=== PATIENT | female | born 1970 | race Caucasian/White ===

== ENCOUNTER 2019-09-09 14:24 | Outpatient (CLI) | payer BC, SELFPAY ==
--- NOTE | ~2019-09-09 | MM_ITS ---
EXAMINATION: MM screening zana BI w eva HISTORY: Screening mammogram TECHNIQUE: Craniocaudal and mediolateral oblique 3-D tomosynthesis images were obtained and synthetic 2-D images were generated. CAD analysis was submitted and interpreted. COMPARISON: No prior mammogram is available for comparison at this institution. BREAST PARENCHYMAL COMPOSITION: The breasts are heterogeneously dense, which may obscure small masses . FINDINGS: There is no evidence of suspicious mass, calcification, or architectural distortion to sugg est malignancy in either breast. There has been no suspicious interval change. IMPRESSION: 1. No mammographic evidence of malignancy. 2. Recommend routine screening mammography in one year. BI-RADS Category 1: Negative Reviewed, dictated and finalized at location A.
== END 2019-09-09 14:25 | disposition home or self-care (01) ==
LOC: ANHIMG 14:27
PROVIDERS: PCP Pediatrics; Visit Provider Obstetrics & Gynecology
DX: Z12.31 Encounter for screening mammogram for malignant neoplasm of breast (principal)
CPT/HCPCS: 77063; 77067

== ENCOUNTER 2021-02-01 09:29 | Outpatient (CLI) | payer BC, SELFPAY ==
--- NOTE | ~2021-02-01 | MM_ITS ---
EXAMINATION: MM screening zana BI w eva HISTORY: Screening TECHNIQUE: Craniocaudal and mediolateral oblique 3-D tomosynthesis images were obtained and synthetic 2-D images were generated. CAD analysis was submitted and interpreted. COMPARISON: Comparison to multiple prior studies sequentially, with oldest reviewed study dated 10/27. BREAST PARENCHYMAL COMPOSITION: There are scattered areas of fibroglandular density. FINDINGS: There is no evidence of suspicious mass, calcification, or architectural distortion to sugg est malignancy in either breast. There has been no suspicious interval change. IMPRESSION: 1. No mammographic evidence of malignancy. 2. Recommend routine screening mammography in one year. BI-RADS Category 1: Negative Reviewed, dictated and finalized at location A.
== END 2021-02-01 09:30 | disposition home or self-care (01) ==
LOC: ANHIMG 09:31
PROVIDERS: PCP Pediatrics; Visit Provider Obstetrics & Gynecology
DX: Z12.31 Encounter for screening mammogram for malignant neoplasm of breast (principal)
CPT/HCPCS: 77063; 77067

== ENCOUNTER → 2021-05-16 02:20 | Outpatient (CLI) | payer BC, SELFPAY ==
[2021-05-16 16:44] LABS: SARS-CoV-2 RNA PCR Negative
== END ==
PROVIDERS: PCP Pediatrics; Visit Provider Orthopaedic Surgery
DX: Z01.812 Encounter for preprocedural laboratory examination (principal); Z20.822 Contact with and (suspected) exposure to COVID-19
CPT/HCPCS: C9803; U0003; U0005

== ENCOUNTER 2021-05-19 00:26 | Day surgery (SDC) | payer BC, SELFPAY ==
[2021-05-10 14:10] VITALS: BMI 26.6
--- NOTE | 2021-05-10 14:26 | PC.NURSE ---
Report to the Outpatient Waiting Room, entrance under the green pavilion located off [facility], at time 0600 on date 05/19/21. OR Time: 0730. - You will be asked a series of questions to screen for COVID 19 for your protection. - A mask is required within the hospital. - No visitors are allowed at this time. Preoperative COVID Testing Requirements: COVID TEST 05/16 AT 0735 No COVID Test needed if: (proof is required; if not received patient will have Rapid Test prior to entry) - Patient has received COVID Vaccine at least 14 days prior to procedure date or - Patient has positive COVID test result within last 90 days of surgery date. COVID Test needed if above criteria is not met If not COVID vaccinated a COVID test must be conducted within 72 hours of surgery and patient is asked to isolate self from time of testing until procedure. You will go to the [employer] [facility] for your COVID testing. The [employer] [facility] site is located at the corner of [address] [facility]. You will only be called if COVID results are positive and your surgeon may reschedule your elective surgery date. Patients may have clear liquids (water, carbonated beverages, clear teas, apple juice) until 3 hours prior to surgery with a maximum of 20 ounces. - No food from midnight until time of surgery Take the following medications with a SIP of water the morning of surgery: TYLENOL (IF NEEDED) Medications to discontinue per physician: IBUPROFEN Date to take last dose: PER DR. GAFFNEY Please no make-up, nail german, hairspray, perfume, deodorant, or body powder the day of surgery. No jewelry (including any body piercings) or valuables the day of surgery, leave them at home. Please take a shower or bath the night before, or the morning of, surgery with an antibacterial soap. Wear comfortable, loose fitting clothing. - Jewelry must be removed prior to entering the operating room. Rings and piercings that are not removed may be cut off. - The hospital will not accept responsibility for valuables. - Please leave all valuables, including medications, at home the day of surgery. If you are going home after surgery, a licensed transport truck driver must drive you home. - NO public transportation without another adult. - We recommend that an adult stay with you for 24 hours following discharge. - We also recommend that you do not drive, make important decision, drink alcoholic beverages, or take any drugs that were not prescribed by your health care provider for at least 24 hours after your discharge time. Follow any additional instructions given to you from your surgeon. Telephone instructions given to FRIEDA CHOI and asked if any additional questions and then verbalized understanding. Patient advised to call surgeon office or pre surgery nurse liaison [phone] if any additional questions.
--- NOTE | 2021-05-18 14:40 | PM.IMHP ---
H&P: HPI History of Present Illness Date/Time: 05/18/21 14:40 FRIEDA IS HERE FOR RIGHT SHOULDER PAIN. SHE IS SCHEDULED FOR RIGHT ROTATOR CUFF REPAIR AND DCE. WE DISCUSSED RISKS AND COMPLICATIONS OF SURGERY. SHE IS WANTING TO PROCEED. Chief Complaint: RIGHT SHOULDER PAIN Review of Systems Review of Systems: All systems reviewed & are unremarkable except as noted in HPI and below Eyes: Eyes: Reports no additional eye complaints Respiratory: Respiratory: Reports no additional respiratory complaints Musculoskeletal: Musculoskeletal: Reports no additional musculoskeletal complaints Neurologic: Reports system reviewed and no additional complaints, except as documented [facility] Past Medical History Medical History History of adverse reaction to anesthesia Vision changes Wears glasses Weight gain Surgical History Surgical History History of dilatation and curettage x2 History of laparoscopy Hx of appendectomy Hx of tonsillectomy Family History Family History Other Brain cancer Breast cancer Cerebrovascular accident Diabetes mellitus Heart disease High cholesterol Hypertension Neuropathy Social History Social History Smoking status: Never smoker Alcohol intake: current Drinks per week: 4 Alcohol use details: ~4/week Substance use: never Substance use type: does not use 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 ) normal to inspection, tenderness, axillary nerve sensory function normal and abnormal ROM (rom RR 0 TO 160 DEG ABD 0 TO 160 DEG), elbow/forearm normal to inspection and Extremity exam: right hand normal to inspection and neuromotor exam normal; no cyanosis, no edema and joint enlargement noted Assessment and Plan Additional Plan FRIEDA IS HERE EVALUATION OF HER RIGHT SHOULDER PAIN. SHE HAS NO HISTORY OF TRAUMA. HER PAIN STARTED 2 YEARS AGO. SHE HAS NIGHT PAIN AND CATCHING. HER PAIN IS SEVERE AT TIMES. SHE HAS HAD PT WITH NO IMPROVEMENT. HISTORY, EXAM AND RADIOGRAPHS REVIEWED WITH THE PATIENT. REFERRING PHYSICIAN RECORDS AND IMAGES REVIEWED. CONDITION, NATURE, ETIOLOGY AND COURSE OF NATURAL HISTORY REVIEWED. CONSERVATIVE AND OPERATIVE TREATMENT OPTIONS REVIEWED WELL THE RISKS AND BENEFITS OF EACH. MRI SHOWS FULL THICKNESS ROTATOR CUFF TEAR AND AC JOINT DJD. RECOMMEND RIGHT ROTATOR CUFF REPAIR WITH DISTAL CLAVICLE EXCISION. DISCUSSED NONOPERATIVE AND OPERATIVE TREATMENT OPTIONS WITH THE PATIENT. THE PATIENT'S QUESTIONS WERE ANSWERED. THE PATIENT DESIRES OPERATIVE TREATMENT. DISCUSSED ____RIGHT ROTATOR CUFF REPAIR WITH . RISKS OF SURGERY INCLUDING BUT NOT LIMITED TO NEUROVASCULAR DAMAGE, WOUND COMPLICATIONS, BLOOD CLOT, PULMONARY EMBOLUS, STROKE, IN, ANESTHETIC RISKS UP TO AND INCLUDING WERE REVIEWED. CONTINUED PAIN AND POSSIBLE DYSFUNCTION WERE EXPLAINED. NO GUARANTEES WERE OFFERED. THE PATIENT UNDERSTANDS AND WISHES TO PROCEED.
--- NOTE | 2021-05-18 14:54 | WPDANESEPPF ---
Anes - Initial Pre Proc Eval Procedure: Operation Date: 05/19/21 07:30 Proposed Procedures p Right Rotator Cuff Repair with Distal Clavicle Excision - Gregory Merida MD Date/Time: 05/18/21 14:54 Surgeon: Gregory Merida MD Pre Op Diagnosis: right rotator cuff tear Patient Data Age: 51 Gender: F Height: 1.68 m Weight: 74.84 kg Allergies Allergy/AdvReac Type Severity Reaction Status Date / Time cephalexin [From Keflex] Allergy Rash Verified 05/19/21 07:22 Home Medications Medication Instructions Recorded Confirmed Type acetaminophen 500 mg tablet 500 mg PO Q6H PRN 04/03/21 05/10/21 History ibuprofen 600 mg tablet 600 mg PO Q6H PRN 04/03/21 05/10/21 History Patient hx anesthesia problems: none Family hx anesthesia problems: none Results Review: All pre-operative results and documents have been reviewed as part of the pre-operative evaluation. [facility] Past Medical History Medical History (Updated 05/18/21 @ 14:55 by Hayden Reyes MD) Anxiety History of adverse reaction to anesthesia Overweight (BMI 25.0-29.9) Vision changes Wears glasses Weight gain Surgical History Surgical History History of dilatation and curettage x2 History of laparoscopy Hx of appendectomy Hx of tonsillectomy Family History Family History Other Brain cancer Breast cancer Cerebrovascular accident Diabetes mellitus Heart disease High cholesterol Hypertension Neuropathy Social History Social History Smoking status: Never smoker Alcohol intake: current Drinks per week: 4 Alcohol use details: ~4/week Substance use: never Substance use type: does not use Living arrangements: with family Additional occupation/education comments: Manager [employer] Gender identity (if verbalized by the patient): Female Spiritual care concerns: No Anes - Eval Final PreProcedure Day of Procedure 05/18/21 14:54 Patient weight: overweight Heart: regular rate and rhythm Lungs: clear to auscultation and normal air movement Airway: Mallampati scale class II Neurological: alert and oriented Last oral intake: >/= 8 hours ASA classification: II Emergent: no Anesthetic plan: proceed Anesthesia type and monitoring: general LMA Results Review: All pre-operative results and documents have been reviewed as part of the pre-operative evaluation. Informed Consent: The patient's anesthetic plan and its attendant risks and benefits were discussed with the patient/family/POA. Questions were solicited and answers provided to the satisfaction of the patient/family/POA.
--- NOTE | 2021-05-18 14:55 | WPDANESPNB ---
Anes - Peripheral Nerve Block Date/Time: 05/18/21 14:55 I have discussed with the patient/family/POA the placement of a peripheral nerve block for post-operative pain management, including associated risks, benefits, complications, and side effects. Alternative methods of post-operative analgesia were detailed. Questions were solicited and answers provided to the satisfaction of the patient/family/POA. Time-Out: A pre-procedural Time-Out was completed immediately before starting the procedure and confirmed: Patient Identification, Site, Procedure, Patient Position and the Availability of Requisite Equipment. Clinical Indications: Acute post-operative pain management requested by the operative surgeon. Nerve Block Insertion Note Anes-nerve block: supraclavicular right Patient position: supine Skin prep: chlorhexidine Needle: 22 gauge, stimulating, insulated echogenic needle. Needle length: 80 mm Technique: ultrasound (in plane) Injectate: bupivacaine 0.5% with epi 5 mcg/ml (20cc) Observations: tolerated well Complications: none Procedure start time:: 725 Procedure end time:: 730
[2021-05-19] VITALS (12 sets, daily range): BP systolic 117–137; BP diastolic 72–90; PULSE 64–89; RESP 12–16; TEMP 36.2–36.4; O2SAT 95–100
[2021-05-19] MEDS: ACETAMINOPHEN 500 MG TABLET 1000 MG PO (07:01)
[2021-05-19] MEDS: CELECOXIB 200 MG CAPSULE PO (07:01)
[2021-05-19] MEDS: KETOROLAC 15 MG/ML VIAL (*BKC) IV PUSH ×2 (07:04→11:15)
[2021-05-19] MEDS: LACTATED RINGERS 1,000 ML 30 ML IV CONT ×2 (07:04→09:27)
--- NOTE | 2021-05-19 07:22 | WPDHPUPDATE1 ---
History and Physical Update Update Date/Time: 05/19/21 07:22 History and Physical has been reviewed, including an updated exam of the patient. There are NO changes in the patient's condition. Risks, benefits, and alternatives have been discussed and questions answered. Patient agrees to proceed with procedure.
[2021-05-19] MEDS: CLINDAMYCIN 900 MG/D5W 50 ML 900 MG/50 ML PIGGYBACK 50 MG IVPB (07:41)
--- NOTE | 2021-05-19 08:52 | W.PM.PROC2 ---
Procedure Note - Detailed Date of Procedure 05/19/21 Pre-op Diagnosis right rotator cuff tear and ac joint djd Post-op Diagnosis same Procedure Performed REPAIR RIGHT ROTATOR CUFF WITH DCE Surgeon Gregory Merida MD Anesthesia general Description of Procedure THE PATIENT WAS TAKEN TO THE OPERATING ROOM AND THEN INTUBATED AND PLACED IN THE BEACH CHAIR POSITION. THE RIGHT UPPER EXTREMITY WAS PREPPED AND DRAPED IN THE NORMAL STERILE FASHION. AN INCISION WAS MADE IN BETWEEN THE LESLY-LATERAL ACROMION AND THE AC JOINT. A DISTAL CLAVICLE EXCISION WAS PREFORMED REMOVING 1 CM OF DISTAL CLAVICLE. THE CAPSULE WAS APPROXIMATED WITH 0 VICRYL. NEXT THE FASCIA WAS IDENTIFIED. A MINI OPEN INCISION WAS MADE THROUGH THE DELTOID MUSCLE EXPOSING THE SUBACROMIAL SPACE. A LIMITED ACROMIOPLASTY WAS PREFORMED. THE ROTATOR CUFF WAS IDENTIFIED. THERE WAS A FULL THICKNESS TEAR. IT MEASURED APPROXIMATELY 2 CM X 2 CM. THE GREATER TUBEROSITY WAS DEBRIDED TO BLEEDING BONE. 3 ARTHREX 5.5 SUTURE ANCHORS WERE PLACED IN TO GOOD BONE AND HAD VERY GOOD BITES. WINIFRED-CARMENCITA TYPE REPAIRS WERE DONE TO THE ROTATOR CUFF AND THERE WAS GOOD APPROXIMATION TO THE GREATER TUBEROSITY. THE REPAIR WAS EXCELLENT. THERE WAS NO IMPINGEMENT ON THE REPAIR FROM THE ACROMION WITH RANGE OF MOTION. THE WOUND WAS IRRIGATED WITH COPIOUS AMOUNTS OF ANTIBIOTIC SOLUTION. THE DELTOID MUSCLE WAS REPAIRED WITH #2 FIBER WIRE AND 0 VICRYL SUTURE. THE SUBCUTANEOUS LAYER WAS APPROXIMATED WITH 2-0 VICRYL. THE SKIN WAS APPROXIMATED WITH 3-0 QUIL AND DERMABOND. STERILE DRESSING WAS APPLIED. PATIENT WAS EXTUBATED. Estimated Blood Loss 20 Complications No immediate complications Condition stable Disposition PACU
[2021-05-19] MEDS: fentaNYL CITRATE INJ (*CRX) 100 MCG/2 ML VIAL 25 MCG IV PUSH ×8 (09:16→09:45)
[2021-05-19] MEDS: ONDANSETRON INJ 4 MG/2 ML VIAL IV PUSH (10:13)
[2021-05-19] MEDS: oxyCODONE HCL (*CRX) 5 MG TAB IR PO (10:24)
== END 2021-05-19 12:14 | disposition home or self-care (01) ==
PROVIDERS: PCP Pediatrics; Visit Provider Orthopaedic Surgery
PROC: (CPT 23420; principal; 2021-05-19 07:30)
DX: M75.121 Complete rotator cuff tear or rupture of right shoulder, not specified as traumatic (principal); M19.011 Primary osteoarthritis, right shoulder; G89.18 Other acute postprocedural pain
CPT/HCPCS: 23412; 23120; 64415; A9270; C1713; J1100; J1885; J2250; J2405; J2704; J3010; J7120

== ENCOUNTER 2021-06-12 11:46 | Outpatient (NON) | payer BC, SELFPAY | END 2021-06-12 11:47 | disposition home or self-care (01) | PROVIDERS: PCP Pediatrics; Visit Provider Orthopaedic Surgery | DX: T81.49XA Infection following a procedure, other surgical site, initial encounter (principal) | CPT/HCPCS: 87070; 87075; 87076; 87205 ==

== ENCOUNTER 2021-06-28 16:36 | Observation (INO) | payer BC, SELFPAY ==
[2021-06-22 13:54] VITALS: BMI 27.6
--- NOTE | 2021-06-22 14:02 | PC.NURSE ---
Report to the Outpatient Waiting Room, entrance under the green pavilion located off [facility], at time 1300 on date 06/27/21. OR Time: 1500. - You and your visitor will be asked a series of questions to screen for COVID 19 for your protection. - A mask is required within the hospital. One visitor will be allowed to accompany the patient into the hospital. Patients visitor will be instructed to remain with patient at all times or leave the building. We will allow the visitor to come back to the postoperative area when patient is ready. Preoperative COVID Testing Requirements: COVID TEST 06/24 AT 0930 No COVID Test needed if: (proof is required; if not received patient will have Rapid Test prior to entry) - Patient has received COVID Vaccine at least 14 days prior to procedure date or - Patient has positive COVID test result within last 90 days of surgery date. COVID Test needed if above criteria is not met If not COVID vaccinated a COVID test must be conducted within 72 hours of surgery and patient is asked to isolate self from time of testing until procedure. You will go to the [employer] [facility] for your COVID testing. The [employer] [facility] is located at the corner of [address] [facility]. You will only be called if COVID results are positive and your surgeon may reschedule your elective surgery date. Patients may have clear liquids (water, carbonated beverages, clear teas, apple juice) until 3 hours prior to surgery with a maximum of 20 ounces. - No food from midnight until time of surgery Take the following medications with a SIP of water the morning of surgery: ANTIBIOTIC, TYLENOL (IF NEEDED) Medications to discontinue per physician: IBUPROFEN Date to take last dose: PER DR. GAFFNEY Please no make-up, nail ukrainian, hairspray, perfume, deodorant, or body powder the day of surgery. No jewelry (including any body piercings) or valuables the day of surgery, leave them at home. Please take a shower or bath the night before, or the morning of, surgery with an antibacterial soap. Wear comfortable, loose fitting clothing. - Jewelry must be removed prior to entering the operating room. Rings and piercings that are not removed may be cut off. - The hospital will not accept responsibility for valuables. - Please leave all valuables, including medications, at home the day of surgery. If you are going home after surgery, a licensed tower truck driver must drive you home. - NO public transportation without another adult. - We recommend that an adult stay with you for 24 hours following discharge. - We also recommend that you do not drive, make important decision, drink alcoholic beverages, or take any drugs that were not prescribed by your health care provider for at least 24 hours after your discharge time. Follow any additional instructions given to you from your surgeon. Telephone instructions given to FRIEDA CHOI and asked if any additional questions and then verbalized understanding. Patient advised to call surgeon office or pre surgery nurse liaison [phone] if any additional questions.
[2021-06-27] VITALS (11 sets, daily range): BP systolic 122–154; BP diastolic 78–98; PULSE 80–110; RESP 10–20; TEMP 36.1–38; O2SAT 93–100
--- NOTE | 2021-06-27 08:14 | WPDANESEPPF ---
Anes - Initial Pre Proc Eval Procedure: Operation Date: 06/27/21 15:00 Proposed Procedures p Incision and Debridement Right Shoulder - Gregory Merida MD Date/Time: 06/27/21 08:14 Surgeon: Gregory Merida MD Pre Op Diagnosis: right shoulder post op infection Patient Data Age: 51 Gender: F Height: 1.68 m Weight: 77.7 kg Allergies Allergy/AdvReac Type Severity Reaction Status Date / Time cephalexin [From Keflex] Allergy Rash Verified 06/27/21 13:01 Home Medications Medication Instructions Recorded Confirmed Type acetaminophen 500 mg tablet 500 mg PO Q6H PRN 04/03/21 06/27/21 History ibuprofen 600 mg tablet 600 mg PO Q6H PRN 04/03/21 06/27/21 History sulfamethoxazole 800 1 tablet PO Q12H #28 tablet 06/12/21 06/27/21 Rx mg-trimethoprim 160 mg tablet Patient hx anesthesia problems: none Family hx anesthesia problems: none Results Review: All pre-operative results and documents have been reviewed as part of the pre-operative evaluation. REPLACED BY [facility] Past Medical History Medical History Anxiety History of adverse reaction to anesthesia Overweight (BMI 25.0-29.9) Vision changes Wears glasses Weight gain Surgical History Surgical History History of dilatation and curettage x2 History of laparoscopy Hx of appendectomy Hx of tonsillectomy Family History Family History Other Brain cancer Breast cancer Cerebrovascular accident Diabetes mellitus Heart disease High cholesterol Hypertension Neuropathy Social History Social History Alcohol intake: current Drinks per week: 4 Substance use: never Substance use type: does not use Living arrangements: with family Additional occupation/education comments: [employer] Gender identity (if verbalized by the patient): Female Spiritual care concerns: No Anes - Eval Final PreProcedure Day of Procedure 06/27/21 08:14 Patient weight: overweight Heart: regular rate and rhythm Lungs: clear to auscultation and normal air movement Airway: Mallampati scale class II Neurological: alert and oriented Last oral intake: >/= 8 hours ASA classification: II Emergent: no Anesthetic plan: proceed Anesthesia type and monitoring: general GIVS and LMA Results Review: All pre-operative results and documents have been reviewed as part of the pre-operative evaluation. Informed Consent: The patient's anesthetic plan and its attendant risks and benefits were discussed with the patient/family/POA. Questions were solicited and answers provided to the satisfaction of the patient/family/POA.
--- NOTE | 2021-06-27 11:14 | WPDHPUPDATE1 ---
History and Physical Update Update Date/Time: 06/27/21 11:14 History and Physical has been reviewed, including an updated exam of the patient. There are NO changes in the patient's condition. Risks, benefits, and alternatives have been discussed and questions answered. Patient agrees to proceed with procedure.
[2021-06-27] MEDS: ACETAMINOPHEN 500 MG TABLET 1000 MG PO (13:10)
[2021-06-27] MEDS: CELECOXIB 200 MG CAPSULE PO (13:10)
[2021-06-27] MEDS: LACTATED RINGERS 1,000 ML 30 ML IV CONT ×2 (13:15→16:58)
--- NOTE | 2021-06-27 13:40 | SUR.PREOP ---
1330-Hair removal/scrub deferred r/t dressing over open shoulder incision.
--- NOTE | 2021-06-27 15:38 | SUR.OPER ---
culture swabs given to TRISH Butler. Received in lab by Salima at 1538 per Luke.
--- NOTE | 2021-06-27 16:25 | SUR.OPER ---
Gram stain results read to Dr. Merida from [facility] in the lab
--- NOTE | 2021-06-27 17:03 | W.PM.PROC2 ---
Procedure Note - Detailed Date of Procedure 06/27/21 Pre-op Diagnosis right shoulder post op infection Post-op Diagnosis Same Procedure Performed I AND D RIGHT SHOULDER INFECTION Surgeon Gregory Merida MD Anesthesia General Description of Procedure THE PATIENT WAS TAKEN TO THE OR AND PLACED IN THE BEACH CHAIR POSITION. THE RIGHT SHOULDER WAS PREPPED AND DRAPED IN THE USUAL FASHION. THE WOUND WAS IDENTIFIED. THE INCISION WAS MADE OVER THE OLD WOUND DOWN THROUGH THE SUBCUTANEOUS TISSUES UNTIL THE DELTOID WAS IDENTIFIED. PURULENCE WAS IDENTIFIED. CULTURES WERE TAKEN FROM THE DEEP TISSUES. ANTIBIOTICS WERE STARTED. THE DELTOID MUSCLE WAS IN GOOD CONDITION. SUTURES WERE REMOVED FROM THE DELTOID REPAIR. THE SUB ACROMIAL SPACE SHOWED THE EDGES OF THE ROTATOR CUFF TENDON WERE NOT ATTACHED TO THE GREATER TUBEROSITY. THE CUFF EDGES WERE DEBRIDED. THERE WAS GOOD TISSUE AVAILABLE. THE BURSAE AND OTHER SCAR TISSUES WAS DEBRIDED WITH A RONGEUR. THERE WAS GOOD BLEEDING TISSUE. THE ACROMION WAS DEBRIDED TO GOOD BLEEDING BONE. THE ANCHORS AND SUTURES WERE IDENTIFIED AND WERE REMOVED IN THEIR ENTIRETY. THE WOUND WAS IRRIGATED WITH 4 LITERS OF FLUID INCLUDING STERILE BETADINE AND H2O2 MIXED WITH STERILE WATER. THE DELTOID WAS REPAIRED WITH #1 VICRYL. THE SUB CUTANEOUS TISSUES WITH 2-0 VICRYL AND THE SKIN WITH NYLON. THE WOUND WAS WASHED AND DRESSED. THE PAITIENT WAS EXTUBATED AND SENT TO RECOVERY ROOM IN STABLE CONDITION. Estimated Blood Loss 50 Drains No Packing No Complications No immediate complications Condition Stable Disposition PACU
[2021-06-27] MEDS: ONDANSETRON INJ 4 MG/2 ML VIAL IV PUSH (17:06)
[2021-06-27] MEDS: fentaNYL CITRATE INJ (*CRX) 100 MCG/2 ML VIAL 25 MCG IV PUSH ×4 (17:09→17:38)
[2021-06-27] MEDS: FAMOTIDINE 20 MG/2 ML VIAL IV PUSH (17:30)
[2021-06-27] MEDS: diphenhydrAMINE HCl INJ 50 MG/ML VIAL 25 MG IV PUSH (17:30)
[2021-06-27] MEDS: HYDROmorphone HCL INJ (*CRX) 1 MG/ML SYR 0.5 MG IV PUSH ×2 (17:46→17:52)
--- NOTE | 2021-06-27 18:30 | ADMGEN ---
This patient, Belkis Deng, was admitted to Medical Room 343-01. Patient/family oriented to hospital policies and general routines including ID bracelet, bed and alarms, visiting hours, pain management, procedures, bathroom and other care routines, personal items, smoking policy, room service/diet, and visiting hours. Information on how to activate the Rapid Response Team has been discussed. Patient/Family are encouraged to report perceived risks to care and to ask questions if they do not understand what they are told or what they should do.
[2021-06-27 19:27] LABS: CRP 2.1 mg/dL (<1.0)
[2021-06-27] MEDS: HYDROcodone/acetaminophen (*CRX) 7.5-325 MG TABLET 1 TAB PO (19:51)
[2021-06-27] MEDS: SODIUM CHLORIDE 0.9% IV 1,000 ML 125 ML IV CONT (19:59)
[2021-06-27] MEDS: KETOROLAC 15 MG/ML VIAL (*BKC) IM (23:58)
[2021-06-28] VITALS (8 sets, daily range): BP systolic 113–133; BP diastolic 65–76; PULSE 78–92; RESP 16–18; TEMP 36.3–37.6; O2SAT 95–100
[2021-06-28 05:38] LABS: Basophils Percent Auto 0.3 % (0.2-1.2); Hematocrit 32.3 % (37.0-47.0); Hemoglobin 10.4 g/dL (12.0-15.0); Immature Granulocyte Absolute 0.07 K/mm3 (0.00-0.031); Immature Granulocyte Percent A 0.4 % (0-0.5); Lymphocytes Absolute Auto 0.72 K/mm3 (0.9-3.2); Lymphocytes Percent Auto 4.5 % (18.3-44.2); Mean Corpuscular HGB Conc 32.2 g/dl (32-36); Mean Corpuscular Hemoglobin 31.1 pg (26-34); Mean Corpuscular Volume 96.7 fl (80-100); Mean Platelet Volume 9.3 fl (7.4-10.4); Monocytes Absolute Auto 0.8 K/mm3 (0.1-0.6); Monocytes Percent Auto 4.7 % (2.6-8.5); Neutrophils Absolute Auto 14.4 K/mm3 (1.3-6.7); Neutrophils Percent Auto 90.1 % (45.5-73.1); Platelet Count Result 362 k/mm3 (150-375); Red Blood Count 3.34 M/mm3 (4.2-5.4); Red Cell Distribution Width 12.1 % (11.5-14.5)
[2021-06-28 05:42] LABS: Anion Gap 8 mmol/L (8-16); Blood Urea Nitrogen 11 mg/dL (7-17); Carbon Dioxide 25 mmol/L (22-30); Chloride 102 mmol/L (98-107); Estimated CRCL calculation 75 ml/min; Estimated Glomerular Filt Rate > 60; Glucose 136 mg/dL (65-110); Potassium 4.3 mmol/L (3.4-5.0); Sodium 135 mmol/L (137-145)
[2021-06-28] MEDS: KETOROLAC 15 MG/ML VIAL (*BKC) IM ×2 (05:55→11:54)
--- NOTE | 2021-06-28 16:32 | PM.PNORT ---
Progress Note: A&P Additional Plan POD 1 WITH P. ACNES INFECTION RIGHT SHOULDER. SHE WILL REQUIRE IV ANTIBIOTIC THERAPY. WE WILL USE A PENICILLIN BASED ANTIBIOTIC DUE TO HER CEPHALOSPORIN ALLERGY AND POSSIBLE P. ACNES RESISTANCE TO CLINDAMYCIN. WILL ORDER PIC LINE TODAY. CRP IS 2. WILL FOLLOW WITH WEEKLY CRP ON DISCHARGE. Subjective Subjective Date/Time Seen: 06/28/21 16:32 POD 1 FOR I AND D FOR P ACNES INFECTION FROM OFFICE CULTURES. INTRAOPERATIVE CULTURES PENDING. NO NEW COMPLAINTS Exam Extrem: Other: VSS AFEBRILE DRESSING DRY NV INTACT PAIN WELL CONTROLLED. Objective Data Vital Signs Vital Signs: Vital Signs - 24 hr 06/27/21 16:58 06/27/21 17:10 06/27/21 17:25 Temperature 36.5 C Pulse Rate 96 102 H 99 Respiratory Rate 10 L 18 18 Blood Pressure 137/94 H 132/78 154/98 H Pulse Oximetry 100 96 94 06/27/21 17:40 06/27/21 17:55 06/27/21 18:08 Temperature Pulse Rate 95 94 80 Respiratory Rate 12 14 12 Blood Pressure 152/90 H 143/96 H 132/88 Pulse Oximetry 95 94 94 06/27/21 18:30 06/27/21 18:45 06/27/21 19:15 Temperature 36.1 C L 36.2 C L 38.0 C H Pulse Rate 110 H 89 84 Respiratory Rate 18 18 16 Blood Pressure 153/91 H 136/78 122/87 Pulse Oximetry 96 97 93 06/27/21 20:15 06/28/21 00:16 06/28/21 04:15 Temperature 36.7 C 37.4 C 36.9 C Pulse Rate 87 87 85 Respiratory Rate 18 16 16 Blood Pressure 132/86 123/76 117/65 Pulse Oximetry 97 95 97 06/28/21 06:25 06/28/21 08:15 06/28/21 11:55 Temperature 37.6 C H 36.9 C 37.4 C Pulse Rate 84 92 90 Respiratory Rate 18 16 18 Blood Pressure 117/66 113/68 117/69 Pulse Oximetry 97 95 97 Intake/Output Intake/Output: Intake & Output 06/25/21 06/26/21 06/27/21 06/28/21 23:59 23:59 23:59 23:59 Intake Total 500 1850 Output Total 800 Balance 500 1050 Meds/Results Medications: Active Medications Generic Name Dose Route Start Last Admin Trade Name Freq PRN Reason Stop Dose Admin Acetaminophen 650 mg 06/27/21 18:10 Acetaminophen 325 Mg Tablet PO Q6H PRN Pain Rated 1-3 Hydrocodone Bitart/Acetaminophen 1 tab 06/27/21 18:10 06/27/21 19:51 Hydrocodone/Acetaminophen (*Crx) 7.5-325 Mg Tablet PO 1 tab Q3H PRN Administration Pain Rated 4-6 Diazepam 5 mg 06/27/21 18:10 Diazepam (*Crx) 5 Mg Tablet PO Q8H PRN Muscle Spasm Vancomycin HCl 1,250 mg in 250 mls @ 250 mls/hr 06/28/21 21:00 Vancomycin 1,250 Mg/D5w 250 Ml IVPB Q18H АЛЕКСАНДР Morphine Sulfate 3 mg 06/27/21 18:10 Morphine Sulfate (*Crx) 4 Mg/Ml Inj IV PUSH Q3H PRN Pain Rated 7-10 Naloxone HCl 0.1 mg 06/27/21 18:10 Naloxone Hcl 0.4 Mg/Ml Vial IV PUSH Q2M PRN Opiate Reversal Ondansetron HCl 4 mg 06/27/21 18:10 Ondansetron Inj 4 Mg/2 Ml Vial IV PUSH Q4H PRN Nausea And Vomiting Labs Labs: Laboratory Results - last 24 hr 06/27/21 06/28/21 06/28/21 19:09 05:19 05:19 WBC 16.0 H RBC 3.34 L Hgb 10.4 L Hct 32.3 L MCV 96.7 MCH 31.1 MCHC 32.2 RDW 12.1 Plt Count 362 MPV 9.3 Immature Gran % (Auto) 0.4 Neut % (Auto) 90.1 H Lymph % (Auto) 4.5 L Elbert % (Auto) 4.7 Eos % (Auto) 0.0 Baso % (Auto) 0.3 Lymph # (Auto) 0.72 L Elbert # (Auto) 0.8 H Eos # (Auto) 0.0 Baso # (Auto) 0.0 Abs Immat Gran (auto) 0.07 H Absolute Neuts (auto) 14.4 H Absolute Nucleated RBC 0.0 Nucleated RBC % 0.0 Sodium 135 L Potassium 4.3 Chloride 102 Carbon Dioxide 25 Anion Gap 8 BUN 11 Creatinine 0.70 Estim Creat Clear Calc 75 Estimated GFR > 60 Glucose 136 H Calcium 8.0 L C-Reactive Protein 2.1 H
[2021-06-28] MEDS: HYDROcodone/acetaminophen (*CRX) 7.5-325 MG TABLET 1 TAB PO (20:03)
[2021-06-29] MEDS: HYDROcodone/acetaminophen (*CRX) 7.5-325 MG TABLET 1 TAB PO ×3 (01:59→17:59)
[2021-06-29 05:32] VITALS: BP 111/67; PULSE 68; RESP 16; TEMP 36.3; O2SAT 98
[2021-06-29 05:34] LABS: Estimated CRCL calculation 75 ml/min; Estimated Glomerular Filt Rate > 60
[2021-06-29 08:24] VITALS: O2SAT 96
[2021-06-29] MEDS: LIDOCAINE HCL 1% PF INJ 5 ML VIAL INFILTRATE (08:45)
[2021-06-29 12:00] VITALS: BP 140/65; PULSE 81; RESP 18; TEMP 37.2; O2SAT 18
[2021-06-29] MEDS: ACETAMINOPHEN 325 MG TABLET 650 MG PO (12:49)
[2021-06-29 12:50] LABS: Basophils Absolute Auto 0.1 K/mm3 (0.0-0.1); Basophils Percent Auto 0.6 % (0.2-1.2); Eosinophils Absolute Auto 0.6 K/mm3 (0-0.3); Eosinophils Percent Auto 4.5 % (0-4.4); Hemoglobin 9.9 g/dL (12.0-15.0); Immature Granulocyte Absolute 0.05 K/mm3 (0.00-0.031); Immature Granulocyte Percent A 0.4 % (0-0.5); Lymphocytes Absolute Auto 1.61 K/mm3 (0.9-3.2); Lymphocytes Percent Auto 12.8 % (18.3-44.2); Mean Corpuscular HGB Conc 31.9 g/dl (32-36); Mean Corpuscular Hemoglobin 31.4 pg (26-34); Mean Corpuscular Volume 98.4 fl (80-100); Mean Platelet Volume 9.5 fl (7.4-10.4); Monocytes Absolute Auto 0.6 K/mm3 (0.1-0.6); Neutrophils Absolute Auto 9.6 K/mm3 (1.3-6.7); Neutrophils Percent Auto 76.7 % (45.5-73.1); Platelet Count Result 341 k/mm3 (150-375); Red Blood Count 3.15 M/mm3 (4.2-5.4); Red Cell Distribution Width 12.7 % (11.5-14.5); White Blood Count 12.6 K/mm3 (4.5-10.0)
[2021-06-29] MEDS: CENTRAL LINE FLUSH 10 ML IV PUSH ×2 (15:29→22:00)
--- NOTE | 2021-06-29 16:33 | PM.PNORT ---
Progress Note: A&P Additional Plan POD [address] ANTICIPATE DC TOMORROW. Subjective Subjective Date/Time Seen: 06/29/21 16:33 POD 2 DOING WELL. WBC COUNT DECREASED. ON VANCOMYCIN. WILL START AMPICILLIN IV AND CONTINUE FOR 4 WEEKS THEN SWITCH TO ORAL BX Exam Extrem: Other: VSS AFEBRILE DRESSING DRY NV INTACT NEG HOMANS SIGN Objective Data Vital Signs Vital Signs: Vital Signs - 24 hr 06/28/21 20:00 06/28/21 21:34 06/29/21 05:32 Temperature 36.3 C L 36.3 C L Pulse Rate 78 68 Respiratory Rate 16 16 Blood Pressure 133/74 111/67 Pulse Oximetry 100 96 98 06/29/21 08:24 06/29/21 12:00 Temperature 37.2 C Pulse Rate 81 Respiratory Rate 18 Blood Pressure 140/65 Pulse Oximetry 96 18 L Intake/Output Intake/Output: Intake & Output 06/26/21 06/27/21 06/28/21 06/29/21 23:59 23:59 23:59 23:59 Intake Total 500 2220 520 Output Total 1350 450 Balance 500 870 70 Meds/Results Medications: Active Medications Generic Name Dose Route Start Last Admin Trade Name Freq PRN Reason Stop Dose Admin Acetaminophen 650 mg 06/27/21 18:10 06/29/21 12:49 Acetaminophen 325 Mg Tablet PO 650 mg Q6H PRN Administration Pain Rated 1-3 Hydrocodone Bitart/Acetaminophen 1 tab 06/27/21 18:10 06/29/21 08:25 Hydrocodone/Acetaminophen (*Crx) 7.5-325 Mg Tablet PO 1 tab Q3H PRN Administration Pain Rated 4-6 Diazepam 5 mg 06/27/21 18:10 Diazepam (*Crx) 5 Mg Tablet PO Q8H PRN Muscle Spasm Ampicillin Sodium 2 gm in 100 mls @ 200 mls/hr 06/29/21 18:00 Ampicillin 2 Gm/Ns 100 Ml IVPB Q6H АЛЕКСАНДР Morphine Sulfate 3 mg 06/27/21 18:10 Morphine Sulfate (*Crx) 4 Mg/Ml Inj IV PUSH Q3H PRN Pain Rated 7-10 Naloxone HCl 0.1 mg 06/27/21 18:10 Naloxone Hcl 0.4 Mg/Ml Vial IV PUSH Q2M PRN Opiate Reversal Ondansetron HCl 4 mg 06/27/21 18:10 Ondansetron Inj 4 Mg/2 Ml Vial IV PUSH Q4H PRN Nausea And Vomiting Sodium Chloride 10 ml 06/29/21 14:00 06/29/21 15:29 Central Line Flush IV PUSH 10 ml Q8HR АЛЕКСАНДР Administration Sodium Chloride 10 ml 06/29/21 09:38 Central Line Flush IV PUSH PRN PRN with TPN bag changes Sodium Chloride 20 ml 06/29/21 09:38 Central Line Flush IV PUSH PRN PRN after blood draws Labs Labs: Laboratory Results - last 24 hr 06/29/21 06/29/21 05:17 12:41 WBC 12.6 H RBC 3.15 L Hgb 9.9 L Hct 31.0 L MCV 98.4 MCH 31.4 MCHC 31.9 L RDW 12.7 Plt Count 341 MPV 9.5 Immature Gran % (Auto) 0.4 Neut % (Auto) 76.7 H Lymph % (Auto) 12.8 L Quay % (Auto) 5.0 Eos % (Auto) 4.5 H Baso % (Auto) 0.6 Lymph # (Auto) 1.61 Quay # (Auto) 0.6 Eos # (Auto) 0.6 H Baso # (Auto) 0.1 Abs Immat Gran (auto) 0.05 H Absolute Neuts (auto) 9.6 H Absolute Nucleated RBC 0.0 Nucleated RBC % 0.0 Creatinine 0.70 Estim Creat Clear Calc 75 Estimated GFR > 60
[2021-06-29 17:36] VITALS: PULSE 93; RESP 18; TEMP 36.4; O2SAT 99
[2021-06-29] MEDS: AMPICILLIN 2 GM/NS 100 ML 2 GM/100 ML BAG IVPB (17:59)
[2021-06-29 20:00] VITALS: PULSE 85; RESP 18; O2SAT 97
[2021-06-29 21:00] VITALS: BP 163/76; PULSE 85; RESP 18; TEMP 36.9; O2SAT 98
[2021-06-30] MEDS: AMPICILLIN 2 GM/NS 100 ML 2 GM/100 ML BAG IVPB ×3 (00:01→12:15)
[2021-06-30 05:17] LABS: Hematocrit 31.1 % (37.0-47.0); Hemoglobin 10.2 g/dL (12.0-15.0); Mean Corpuscular HGB Conc 32.8 g/dl (32-36); Mean Corpuscular Hemoglobin 31.3 pg (26-34); Mean Corpuscular Volume 95.4 fl (80-100); Mean Platelet Volume 9.3 fl (7.4-10.4); Platelet Count Result 348 k/mm3 (150-375); Red Blood Count 3.26 M/mm3 (4.2-5.4); Red Cell Distribution Width 12.3 % (11.5-14.5); White Blood Count 12.4 K/mm3 (4.5-10.0)
[2021-06-30] MEDS: HYDROcodone/acetaminophen (*CRX) 7.5-325 MG TABLET 1 TAB PO (05:55)
[2021-06-30 06:29] VITALS: BP 142/61; PULSE 81; RESP 18; TEMP 36.7; O2SAT 95
[2021-06-30] MEDS: CENTRAL LINE FLUSH 10 ML IV PUSH ×2 (06:30→13:17)
[2021-06-30] MEDS: ACETAMINOPHEN 325 MG TABLET 650 MG PO (08:55)
--- NOTE | 2021-06-30 13:27 | PM.PNORT ---
Progress Note: A&P Additional Plan POD 3 DOING WELL. SHE IS TOLERATING THE AMPICILLIN WITHOUT ANY PROBLEMS. HER DRESSING WAS CHANGED TODAY. SHE IS READY FOR DC. SHE WILL DO EVERY OTHER DAY DRESSING CHANGES NEEDED. SHE WILL HAVE 4 WEEKS OF IV AMPICILLIN AND 4 WEKS OF ORAL ABX. SHE WILL F/U IN 2 WEEKS. Subjective Subjective Date/Time Seen: 06/30/21 13:27 pod3 doing well. wbc stable. no calf pain Exam Extrem: Other: VSS AFEBRILE DRESSING DRY NV INTACT, WOUND CLEAN, DRESSING REPLACED TODAY Objective Data Vital Signs Vital Signs: Vital Signs - 24 hr 06/29/21 17:36 06/29/21 20:00 06/29/21 21:00 Temperature 36.4 C L 36.9 C Pulse Rate 93 85 85 Respiratory Rate 18 18 18 Blood Pressure 163/76 H Pulse Oximetry 99 97 98 06/30/21 06:29 Temperature 36.7 C Pulse Rate 81 Respiratory Rate 18 Blood Pressure 142/61 H Pulse Oximetry 95 Intake/Output Intake/Output: Intake & Output 06/27/21 06/28/21 06/29/21 06/30/21 23:59 23:59 23:59 23:59 Intake Total 500 2220 740 1030 Output Total 1350 1600 850 Balance 500 870 -860 180 Meds/Results Medications: Active Medications Generic Name Dose Route Start Last Admin Trade Name Freq PRN Reason Stop Dose Admin Acetaminophen 650 mg 06/27/21 18:10 06/30/21 08:55 Acetaminophen 325 Mg Tablet PO 650 mg Q6H PRN Administration Pain Rated 1-3 Hydrocodone Bitart/Acetaminophen 1 tab 06/27/21 18:10 06/30/21 05:55 Hydrocodone/Acetaminophen (*Crx) 7.5-325 Mg Tablet PO 1 tab Q3H PRN Administration Pain Rated 4-6 Diazepam 5 mg 06/27/21 18:10 Diazepam (*Crx) 5 Mg Tablet PO Q8H PRN Muscle Spasm Ampicillin Sodium 2 gm in 100 mls @ 200 mls/hr 06/29/21 18:00 06/30/21 12:45 Ampicillin 2 Gm/Ns 100 Ml IVPB Infused Q6H АЛЕКСАНДР Infusion Morphine Sulfate 3 mg 06/27/21 18:10 Morphine Sulfate (*Crx) 4 Mg/Ml Inj IV PUSH Q3H PRN Pain Rated 7-10 Naloxone HCl 0.1 mg 06/27/21 18:10 Naloxone Hcl 0.4 Mg/Ml Vial IV PUSH Q2M PRN Opiate Reversal Ondansetron HCl 4 mg 06/27/21 18:10 Ondansetron Inj 4 Mg/2 Ml Vial IV PUSH Q4H PRN Nausea And Vomiting Sodium Chloride 10 ml 06/29/21 14:00 06/30/21 13:17 Central Line Flush IV PUSH 10 ml Q8HR АЛЕКСАНДР Administration Sodium Chloride 10 ml 06/29/21 09:38 Central Line Flush IV PUSH PRN PRN with TPN bag changes Sodium Chloride 20 ml 06/29/21 09:38 Central Line Flush IV PUSH PRN PRN after blood draws Labs Labs: Laboratory Results - last 24 hr 06/30/21 05:08 WBC 12.4 H RBC 3.26 L Hgb 10.2 L Hct 31.1 L MCV 95.4 MCH 31.3 MCHC 32.8 RDW 12.3 Plt Count 348 MPV 9.3
--- NOTE | 2021-06-30 13:32 | PM.DS ---
DS: Admitting Diagnosis Discharge Date 06/30/21 Admitting Diagnosis RIGHT POSTOP SHOULDER INFECTION DS: Discharge Diagnosis Discharge Diagnosis (1) Postoperative infection: Qualifiers: Encounter type: subsequent encounter Postoperative infection type: deep incisional surgical site Qualified Code(s): T81.42XD - Infection following a procedure, deep incisional surgical site, subsequent encounter Code(s): T81.40XA - Infection following a procedure, unspecified, initial encounter Status: Acute (2) Rotator cuff tear, right: Qualifiers: Rotator cuff tear extent: complete Rotator cuff tear trauma status: nontraumatic Qualified Code(s): M75.121 - Complete rotator cuff tear or rupture of right shoulder, not specified as traumatic Code(s): M75.101 - Unspecified rotator cuff tear or rupture of right shoulder, not specified as traumatic Status: Acute DS: Summary Hospital Course Reason for hospitalization: RIGHT SHOULDER INFECTION Hospital Course: THE PATIENT UNDERWENT I AND D OF HER RIGHT SHOULDER WOUND. SHE WAS PLACED ON IV ANTIBIOTICS. HER CULTURES WERE POSITIVE FOR P ACNES FROM THE OFFICE CULTURES. HER WBC AND CRP WERE ELEVATED. SHE DID WELL WITH PT. HER WOUND REMAINED FREE OF ANY OTHER INFECTION. HER PAIN WAS WELL CONTROLLED. HER WBC COUNT WAS STILL DROPPING. SHE WAS FELT ABLE FOR DISCHARGE TO HOME. SHE WOULD GET INFUSION THERAPY WITH IV AMPICILLIN FOR 4 WEEKS. SHE WOULD THEN START ORAL ABX. SHE WILL F/U IN THE OFFICE IN 2 WEEKS. IN THE MEAN TIME SHE WAS SHOWN HOW TO PREFORM DRESSING CHANGES AND BE AWARE OF ANY FEVER OR CHILLS Time spent discussing smoking cessation with patient: more than 10 minutes Status at Discharge Cognitive/behavioral status at discharge: STABLE Overall status at discharge: patient is not back to baseline Time Spent with Patient Time attestation: Total time spent providing and/or coordinating discharge services: Time spent: Less than 30 minutes DS: Data Data Completed and Pending Labs on day of discharge: Labs from last 24 hours 06/30/21 05:08 WBC 12.4 H RBC 3.26 L Hgb 10.2 L Hct 31.1 L MCV 95.4 MCH 31.3 MCHC 32.8 RDW 12.3 Plt Count 348 MPV 9.3 Preliminary micro results at discharge 06/27/21 15:31 Anaerobic Culture - Preliminary Shoulder Right Discharge Plan Discharge Attending physician on discharge: Gregory Merida Discharging Clinician: Gregory Merida Anticipated Discharge Date/Time: 06/30/21 13:40 Patient Disposition: Home, Self-Care Activity: may shower, no driving and follow weight bearing status Diet: as tolerated Wound Care Instructions: keep dressing dry Discharge Instructions: Patient to discharge with [facility] IV infusion ([phone]) for 4 weeks of IV antibiotic infusions. Please fax discharge instructions and medication sheets to . Patient to report to [facility] outpatient registration on 07/06/21, 07/13/21, 07/20/21, and 07/27/21 at 0830 to register for labwork (weekly CBC with diff, CMP, and CRP) with results faxed to [facility] pharmacy at fax # [phone] and IV site dressing changes by the Vascular access nurse, RN. Norma ) at 0900. Patient Instructions: Antibiotic Form Stand Alone Forms: General Discharge Information Follow-up/Referrals: Gregory Merida MD [Physician] - Discharge Medications: New oxycodone-acetaminophen [Percocet] 5-325 mg tablet 1 tablet PO Q6H PRN (Reason: pain) Qty: 30 RF: 0 Continued sulfamethoxazole-trimethoprim [Bactrim DS] 800-160 mg tablet 1 tablet PO Q12H Qty: 28 RF: 0 acetaminophen [Tylenol Extra Strength] 500 mg tablet 500 mg PO Q6H PRN (Reason: Pain) RF: 0 ibuprofen 600 mg tablet 600 mg PO Q6H PRN (Reason: Pain) RF: 0 Date of admission: 06/28/21 16:36 Primary Care Provider: Yeyo Paz Admitting Provider: Gregory Merida Attending physician on adm
[2021-06-30 14:04] VITALS: BP 143/72; PULSE 88; RESP 18; TEMP 36.9; O2SAT 97
== END 2021-06-30 15:21 | disposition home or self-care (01) ==
LOC: ANHSURGERY 16:39 → ANH3MED 16:39
PROVIDERS: Admitting Provider Orthopaedic Surgery; PCP Pediatrics; Visit Provider Orthopaedic Surgery
PROC: (CPT 23929; principal; 2021-06-27 15:00)
DX: T81.42XA Infection following a procedure, deep incisional surgical site, initial encounter (principal); B96.89 Other specified bacterial agents as the cause of diseases classified elsewhere; M75.121 Complete rotator cuff tear or rupture of right shoulder, not specified as traumatic; F41.9 Anxiety disorder, unspecified
CPT/HCPCS: 23929; 36415; 36569; 80048; 82565; 85025; 85027; 86140; 87070; 87075; 87205; A4565; A9270; C1751; G0378; J0290; J1100; J1170; J1200; J1885; J2250; J2405; J2704; J3010; J3370; J7030; J7120

== ENCOUNTER 2021-07-28 12:53 | Outpatient (RCR) | payer BC, SELFPAY ==
[2021-07-06 09:35] LABS: Basophils Absolute Auto 0.1 K/mm3 (0.0-0.1); Basophils Percent Auto 1.2 % (0.2-1.2); Eosinophils Absolute Auto 0.5 K/mm3 (0-0.3); Hematocrit 35.1 % (37.0-47.0); Hemoglobin 11.3 g/dL (12.0-15.0); Immature Granulocyte Absolute 0.04 K/mm3 (0.00-0.031); Immature Granulocyte Percent A 0.4 % (0-0.5); Lymphocytes Absolute Auto 1.78 K/mm3 (0.9-3.2); Lymphocytes Percent Auto 19.7 % (18.3-44.2); Mean Corpuscular HGB Conc 32.2 g/dl (32-36); Mean Corpuscular Volume 96.2 fl (80-100); Mean Platelet Volume 9.7 fl (7.4-10.4); Monocytes Absolute Auto 0.7 K/mm3 (0.1-0.6); Monocytes Percent Auto 8.1 % (2.6-8.5); Neutrophils Absolute Auto 5.9 K/mm3 (1.3-6.7); Neutrophils Percent Auto 65.6 % (45.5-73.1); Platelet Count Result 484 k/mm3 (150-375); Red Blood Count 3.65 M/mm3 (4.2-5.4); Red Cell Distribution Width 12.4 % (11.5-14.5); White Blood Count 9.1 K/mm3 (4.5-10.0)
[2021-07-06 09:45] LABS: Alanine Aminotransferase 26 U/L (4-35); Albumin Level 4.1 g/dL (3.5-5.1); Alkaline Phosphatase 71 U/L (38-126); Anion Gap 7 mmol/L (8-16); Aspartate Amino Transferase 25 U/L (14-36); Bilirubin,Total 0.2 mg/dL (0.2-1.3); Blood Urea Nitrogen 13 mg/dL (7-17); CRP 1.2 mg/dL (<1.0); Calcium 8.7 mg/dL (8.4-10.2); Carbon Dioxide 27 mmol/L (22-30); Chloride 103 mmol/L (98-107); Estimated Glomerular Filt Rate > 60; Glucose 87 mg/dL (65-110); Sodium 137 mmol/L (137-145)
[2021-07-13 09:00] LABS: Basophils Absolute Auto 0.1 K/mm3 (0.0-0.1); Basophils Percent Auto 1.7 % (0.2-1.2); Eosinophils Absolute Auto 0.5 K/mm3 (0-0.3); Eosinophils Percent Auto 6.7 % (0-4.4); Hematocrit 35.5 % (37.0-47.0); Hemoglobin 11.2 g/dL (12.0-15.0); Immature Granulocyte Absolute 0.01 K/mm3 (0.00-0.031); Immature Granulocyte Percent A 0.1 % (0-0.5); Lymphocytes Absolute Auto 1.49 K/mm3 (0.9-3.2); Lymphocytes Percent Auto 21.4 % (18.3-44.2); Mean Corpuscular HGB Conc 31.5 g/dl (32-36); Mean Corpuscular Hemoglobin 30.8 pg (26-34); Mean Corpuscular Volume 97.5 fl (80-100); Mean Platelet Volume 10.2 fl (7.4-10.4); Monocytes Absolute Auto 0.6 K/mm3 (0.1-0.6); Monocytes Percent Auto 8.3 % (2.6-8.5); Neutrophils Absolute Auto 4.3 K/mm3 (1.3-6.7); Neutrophils Percent Auto 61.8 % (45.5-73.1); Platelet Count Result 389 k/mm3 (150-375); Red Blood Count 3.64 M/mm3 (4.2-5.4); Red Cell Distribution Width 13.2 % (11.5-14.5)
[2021-07-13 09:13] LABS: Alanine Aminotransferase 16 U/L (4-35); Alkaline Phosphatase 59 U/L (38-126); Anion Gap 6 mmol/L (8-16); Aspartate Amino Transferase 20 U/L (14-36); Bilirubin,Total 0.2 mg/dL (0.2-1.3); Blood Urea Nitrogen 17 mg/dL (7-17); CRP < 0.5 mg/dL (<1.0); Calcium 8.2 mg/dL (8.4-10.2); Carbon Dioxide 25 mmol/L (22-30); Chloride 105 mmol/L (98-107); Estimated Glomerular Filt Rate > 60; Glucose 95 mg/dL (65-110); Sodium 136 mmol/L (137-145)
[2021-07-20 08:58] LABS: Basophils Absolute Auto 0.1 K/mm3 (0.0-0.1); Basophils Percent Auto 1.4 % (0.2-1.2); Eosinophils Absolute Auto 0.5 K/mm3 (0-0.3); Eosinophils Percent Auto 7.4 % (0-4.4); Hematocrit 37.5 % (37.0-47.0); Hemoglobin 11.8 g/dL (12.0-15.0); Immature Granulocyte Absolute 0.02 K/mm3 (0.00-0.031); Immature Granulocyte Percent A 0.3 % (0-0.5); Lymphocytes Absolute Auto 1.49 K/mm3 (0.9-3.2); Lymphocytes Percent Auto 21.1 % (18.3-44.2); Mean Corpuscular HGB Conc 31.5 g/dl (32-36); Mean Corpuscular Hemoglobin 30.5 pg (26-34); Mean Corpuscular Volume 96.9 fl (80-100); Mean Platelet Volume 10.4 fl (7.4-10.4); Monocytes Absolute Auto 0.6 K/mm3 (0.1-0.6); Monocytes Percent Auto 8.4 % (2.6-8.5); Neutrophils Absolute Auto 4.3 K/mm3 (1.3-6.7); Neutrophils Percent Auto 61.4 % (45.5-73.1); Platelet Count Result 337 k/mm3 (150-375); Red Blood Count 3.87 M/mm3 (4.2-5.4); Red Cell Distribution Width 13.6 % (11.5-14.5); White Blood Count 7.1 K/mm3 (4.5-10.0)
[2021-07-20 09:10] LABS: Alanine Aminotransferase 15 U/L (4-35); Albumin Level 3.9 g/dL (3.5-5.1); Alkaline Phosphatase 58 U/L (38-126); Anion Gap 7 mmol/L (8-16); Aspartate Amino Transferase 21 U/L (14-36); Bilirubin,Total 0.3 mg/dL (0.2-1.3); Blood Urea Nitrogen 14 mg/dL (7-17); CRP 0.7 mg/dL (<1.0); Calcium 8.3 mg/dL (8.4-10.2); Carbon Dioxide 26 mmol/L (22-30); Chloride 104 mmol/L (98-107); Estimated Glomerular Filt Rate > 60; Glucose 87 mg/dL (65-110); Potassium 3.8 mmol/L (3.4-5.0); Sodium 137 mmol/L (137-145)
[2021-07-28 13:28] LABS: Basophils Absolute Auto 0.1 K/mm3 (0.0-0.1); Basophils Percent Auto 0.8 % (0.2-1.2); Eosinophils Absolute Auto 0.5 K/mm3 (0-0.3); Eosinophils Percent Auto 6.2 % (0-4.4); Hematocrit 38.3 % (37.0-47.0); Hemoglobin 12.3 g/dL (12.0-15.0); Immature Granulocyte Absolute 0.01 K/mm3 (0.00-0.031); Immature Granulocyte Percent A 0.1 % (0-0.5); Lymphocytes Absolute Auto 1.71 K/mm3 (0.9-3.2); Lymphocytes Percent Auto 22.9 % (18.3-44.2); Mean Corpuscular HGB Conc 32.1 g/dl (32-36); Mean Corpuscular Hemoglobin 30.8 pg (26-34); Mean Platelet Volume 10.4 fl (7.4-10.4); Monocytes Absolute Auto 0.8 K/mm3 (0.1-0.6); Monocytes Percent Auto 10.8 % (2.6-8.5); Neutrophils Absolute Auto 4.4 K/mm3 (1.3-6.7); Neutrophils Percent Auto 59.2 % (45.5-73.1); Platelet Count Result 310 k/mm3 (150-375); Red Blood Count 3.99 M/mm3 (4.2-5.4); Red Cell Distribution Width 13.4 % (11.5-14.5); White Blood Count 7.5 K/mm3 (4.5-10.0)
[2021-07-28 13:46] LABS: Alanine Aminotransferase 19 U/L (4-35); Albumin Level 4.1 g/dL (3.5-5.1); Alkaline Phosphatase 58 U/L (38-126); Anion Gap 4 mmol/L (8-16); Aspartate Amino Transferase 24 U/L (14-36); Bilirubin,Total 0.2 mg/dL (0.2-1.3); Blood Urea Nitrogen 13 mg/dL (7-17); CRP < 0.5 mg/dL (<1.0); Calcium 8.4 mg/dL (8.4-10.2); Carbon Dioxide 29 mmol/L (22-30); Chloride 104 mmol/L (98-107); Estimated Glomerular Filt Rate > 60; Glucose 73 mg/dL (65-110); Potassium 3.9 mmol/L (3.4-5.0); Sodium 137 mmol/L (137-145)
== END 2021-10-04 23:59 | disposition home or self-care (01) ==
LOC: ANHVASCINF 12:53
PROVIDERS: PCP Pediatrics; Visit Provider Orthopaedic Surgery
DX: T81.49XA Infection following a procedure, other surgical site, initial encounter (principal)
CPT/HCPCS: 36415; 36592; 80053; 85025; 86140; 99211; G0463

== ENCOUNTER 2021-09-01 14:11 | Outpatient (CLI) | payer BC, SELFPAY ==
[2021-09-01 15:18] LABS: CRP 1.4 mg/dL (<1.0)
== END 2021-09-01 14:12 | disposition home or self-care (01) ==
LOC: ANHLAB 14:11
PROVIDERS: PCP Pediatrics; Visit Provider Orthopaedic Surgery
DX: M75.121 Complete rotator cuff tear or rupture of right shoulder, not specified as traumatic (principal); T81.42XD Infection following a procedure, deep incisional surgical site, subsequent encounter
CPT/HCPCS: 36415; 86140

== ENCOUNTER 2021-09-27 09:48 | Outpatient (CLI) | payer BC, SELFPAY ==
[2021-09-27 10:43] LABS: CRP 0.6 mg/dL (<1.0)
== END 2021-09-27 09:49 | disposition home or self-care (01) ==
LOC: ANHLAB 09:49
PROVIDERS: PCP Pediatrics; Visit Provider Orthopaedic Surgery
DX: T81.40XA Infection following a procedure, unspecified, initial encounter (principal)
CPT/HCPCS: 36415; 86140

== ENCOUNTER 2023-06-05 13:50 | Outpatient (CLI) | payer BC, SELFPAY ==
--- NOTE | ~2023-06-05 | MM_ITS ---
EXAMINATION: MM screening zana BI w eva HISTORY: Screening mammogram TECHNIQUE: Craniocaudal and mediolateral oblique 3-D tomosynthesis images were obtained and synthetic 2-D images were generated. CAD analysis was submitted and interpreted. COMPARISON: 02/01/2021, 09/09/2019 bilateral screening mammogram examinations BREAST PARENCHYMAL COMPOSITION: The breasts are heterogeneously dense, which may obscure small masses . FINDINGS: There is an approximately 12 mm low-density circumscribed mass central left breast area. Di agnostic left mammogram and left breast ultrasound examination are recommended. No suspicious mass, architectural distortion, malignant calcification, skin thickening or retraction or significant new or developing density of the breast is noted otherwise. There are occasional bilat eral benign calcifications. IMPRESSION: 1. 12 mm circumscribed mass, central left breast area, more likely benign; 2. Diagnostic left mammogram and left breast ultrasound examination are recommended BI-RADS Category 0: Incomplete: Needs additional imaging evaluation. Reviewed, dictated and finalized at location A. SPRAYER IMPRESSION: 1. 12 mm circumscribed mass, central left breast area, more likely benign; 2. Diagnostic left mammogram and left breast ultrasound examination are recomme nded BI-RADS Category 0: Incomplete: Needs additional imaging evaluation.
== END 2023-06-05 13:51 | disposition home or self-care (01) ==
LOC: ANHIMG 13:53
PROVIDERS: PCP Pediatrics; Visit Provider Obstetrics & Gynecology
DX: Z12.31 Encounter for screening mammogram for malignant neoplasm of breast (principal); R92.8 Other abnormal and inconclusive findings on diagnostic imaging of breast
CPT/HCPCS: 77063; 77067

== ENCOUNTER 2023-07-11 10:34 | Outpatient (CLI) | payer BC, SELFPAY ==
--- NOTE | ~2023-07-11 | MMUS_ITS ---
EXAMINATION: MM diagnostic zana LT w eva, US breast LT limited HISTORY: 12 mm mass reported on 06/05/2023 screening mammogram TECHNIQUE: Additional 3-D tomosynthesis images of the left breast were performed and synthetic 2-D im ages were generated. CAD analysis was submitted and interpreted. High resolution limited left breast ultrasound was performed. COMPARISON: 06/05/2023 bilateral screening mammogram FINDINGS: MAMMOGRAPHIC FINDINGS: There is an approximately 8 x 12 mm circumscribed low density mass slightly lateral to the mid sagitt al plane in the upper left breast. Occasional benign calcifications. ULTRASOUND: There are multiple cysts, the largest at 2:00 4 cm from nipple, measuring approximately 5 x 11 mm. No suspicious mass or shadowing is detected. IMPRESSION: 1. Benign cysts 2. Routine annual mammographic screening is recommended. BIRADS Category 2: Benign Reviewed, dictated and finalized at location A. IMPRESSION: 1. Benign cysts 2. Routine annual mammographic screening is recommended. BIRADS Category 2: Benign
== END 2023-07-11 10:35 | disposition home or self-care (01) ==
PROVIDERS: PCP Pediatrics; Visit Provider Obstetrics & Gynecology
DX: R92.8 Other abnormal and inconclusive findings on diagnostic imaging of breast (principal)
CPT/HCPCS: 76642; 77061; 77065; G0279

== ENCOUNTER 2024-10-13 07:05 | Outpatient (CLI) | payer BC, SELFPAY ==
--- NOTE | ~2024-10-13 | MM_ITS ---
EXAMINATION: MM screening zana BI w eva HISTORY: Screening TECHNIQUE: Craniocaudal and mediolateral oblique 3-D tomosynthesis images were obtained and synthetic 2-D images were generated. CAD analysis was submitted and interpreted. COMPARISON: Comparison to multiple prior studies sequentially, with oldest reviewed study dated 06/18. BREAST PARENCHYMAL COMPOSITION: Dense: The breasts are heterogeneously dense, which may obscure small masses FINDINGS: There is no evidence of suspicious mass, calcification, or architectural distortion to sugg est malignancy in either breast. There has been no suspicious interval change. IMPRESSION: 1. No mammographic evidence of malignancy. 2. Recommend routine screening mammography in one year. BI-RADS Category 1: Negative Reviewed, dictated and finalized at location []
--- OUTSIDE RECORDS SUMMARY | 2024-10-13 07:09 | XMS_ITS ---
Author Organization [facility] Address [address] [place] [id number] Care Team Providers Care Canopy Inspector Name Role Phone Dr. Yeyo Paz Primary Care Provider [phone] Dr. Edie Graham Unavailable [phone] REASON FOR VISIT spot 3 - sinus issues Vital Signs Temperature 97.4 degrees Fahrenheit 02/13/20 24 Blood pressure systolic 122 mm Hg 02/13/20 24 Blood pressure diastolic 84 mm Hg 024 Heart Rate 86 /min 02/13/2024 Respiratory Rate 16 /min 02/13/2024 Oximetry 97 % 02/13/2024 Encounters Encounter Location Date Provider Diagnosis [address] [address] 02/13/2024 Dr. Edie Graham Bronchitis, not specified as acute or chronic J40 and Chronic sinusitis, unspecified J32.9 Assessments Encounter Date Diagnosis (ICD Code) Assessment Notes Treatment Notes Treatment Clinical Notes Section Notes 02/13/2024 Bronchitis, not specified as acute or chronic (ICD-10 - J40) 02/13/2024 Chronic sinusitis, unspecified (ICD-10 - J32.9) Plan Of Treatment No Information Progress Notes * José CHOIGeorgeB:1970 (54 yo F)Acc No.[id number]:02/13/2024 Patient: Belkis Garcia Provider: Amee Graham MD :1970 A ge:54 Y S ex:Female Date:02/13/2024 Phone: Address:[address] [place], [place] [phone] Pcp:Dr. Yeyo Paz Subjective: * Chief Complaints: * S pot 3 - sinus issues Objective: * Vitals: B P: 122/84 mm Hg, HR: 86 /min, RR: 16 /min, Temp: 97.4 F, Oxygen sat %: 97 %. Assessment: * Assessment: 1. C hronic sinusitis, unspecified - J32.9 S pecify :Src Diagnosis Name: Sinusitis 2 . B ronchitis, not specified as acute or chronic - J40 S pecify :Src Diagnosis Name: Bronchitis * Electronic signature of Dr. Edie Graham on 10/13/2024 at 07:08 AM CDT Sign off status: Pending * Provider: Amee Graham MD Date: 1 04/14/2023 Generated for David coreas/Madhu/Ever on: 0 10/13/2024 07:08 AM CDT
--- OUTSIDE RECORDS SUMMARY | 2024-10-13 07:09 | XMS_ITS ---
Author Organization [facility] Address [address] [place] [address] Care Team Providers Care Electrical Appliance Repairer Name Role Phone Dr. Yeyo Paz Primary Care Provider [phone] Migration, Provider Unavailable Unavailable Allergies Allergen (clinical drug ingredient) Drug/Non Drug Allergy documented on EMR Reaction Allergy Type Onset Date Status Keflex rash Drug Allergy 02/14/2022 Active REASON FOR VISIT EMR-[place] Social History Social History Additional Details Category Social Info Options Details Migrated Social History Migrated Social History Marital status: Encounters Encounter Location Date Provider Diagnosis [facility] [address] [place] [address] 03/01/2024 Provider Migration Plan Of Treatment No Information Progress Notes * Segun CHOINicole:1970 (54 yo F)Acc No.[id number]:03/01/2024 Patient: Belkis FARAH :1970 A ge:54 Y S ex:Female Phone: Address:[address] [place] [address], [phone] Subjective: * Chief Complaints: * E MR-[place] * Surgical History: Irrigation and Debridement ,notes : R shoulder. Post-op infection 06/27/2021 shoulder sugery ,notes : right rotator cuff repair 05/19/2021 * Social History: M igrated Social History: M igrated Social History: Marital status:. * Allergies: K eflex: rash - Allergy - Onset Date 02/14/2022 * * Date:
--- OUTSIDE RECORDS SUMMARY | 2024-10-13 07:09 | XMS_ITS | Clinical Summary ---
Author Organization [facility] Address [address] [place] [address] Care Team Providers Care Financial Services Rep Name Role Phone Yeyo Paz MD Primary Care Provider [phone] Allergies Active Allergy Reactions Criticality Noted Date Comments Cephalexin Rash Low 07/15/2021 Medications HYDROcodone-acet aminophen 7.5-325 MG tablet Take 1 tablet by mouth every 8 (eight) hours as needed. 06/30/2021 Active sulfamethoxazole -trimethoprim 800-160 MG tablet TAKE 1 TABLET BY MOUTH EVERY 12 HOURS FOR 14 DAYS 06/12/2021 Active Social History Tobacco Use Types Packs/Day Years Used Date Smoking Tobacco: Never Assessed Comments Unknown Sex and Gender Information Value Date Recorded Sex Assigned at Not on file Legal Sex Female 4:28 PM CDT Gender Identity Not on file Sexual Orientation Not on file Last Filed Vital Signs Vital Sign Reading Time Taken Comments Blood Pressure 144/89 03/14/2024 11:17 AM KNITTING DEMONSTRATOR Pulse 64 03/14/2024 11:17 AM KNITTING DEMONSTRATOR Temperature 37.1 C (98.8 F) 03/14/2024 11:17 AM KNITTING DEMONSTRATOR Respiratory Rate 16 03/14/2024 11:17 AM KNITTING DEMONSTRATOR Oxygen Saturation 99% 03/14/2024 11:17 AM KNITTING DEMONSTRATOR Inhaled Oxygen Concentration - - Weight 80.7 kg (178 lb) 03/14/2024 11:17 AM KNITTING DEMONSTRATOR Height 167.6 cm (5' 6) 03/14/2024 11:17 AM KNITTING DEMONSTRATOR Body Mass Index 28.73 03/14/2024 11:17 AM KNITTING DEMONSTRATOR Plan of Treatment Health Maintenance Due Date Last Done Comments Cervical Cancer Screening Pa p Smear (Age 30 to 64) Every 3 Years 1970 Colorectal Cancer Screening Colonoscopy (10 Years) 1970 Annual Physical 01/29/1971 Hepatitis C 01/29/1986 DTaP, Tdap and Td Vaccines ( 1 - Tdap) 01/29/1987 Hepatitis B Vaccines (1 of 3 - 19+ 3-dose series) 01/29/1987 Cervical Cancer Screening Pa p with HPV Testing (Age 30 to 64) Every 5 Years 01/29/1998 Cervical Cancer Screening with HPV 01/29/1998 Mammogram Screening 2008 Pneumococcal Vaccine: 50+ Ye ars (1 of 1 - PCV) 01/29/2018 Zoster Vaccines (1 of 2) 01/29/2018 COVID-19 Vaccine (1 - 2023-2 5 season) 2023 PHQ-2 (Phys[facility] [place]) 04/01/2024 Meningococcal B Vaccine Aged Out No l onger eligible based on patient's age to complete this topic Meningococcal Vaccine Aged Out No ana rosa brionna eligible based on patient's age to complete this topic RSV Immunizations Under 20 Months Aged Out No longer eligible based on patient's age to complete this topic Insurance Care Teams Financial Services Rep Relationship Specialty Start Date End Date Yeyo Paz MD [address] [place] [address] PCP - General PEDIATRICS 03/23/21
--- OUTSIDE RECORDS SUMMARY | 2024-10-13 07:09 | XMS_ITS | Patient Health Record ---
Author Organization [facility] Address [address] [place] [address] Care Team Providers Care Mental Health Clinician Name Role Phone Dr. Yeyo Paz Primary Care Provider [phone] Dr. Edie Graham Unavailable [phone] Migration, Provider Unavailable Unavailable Reason For Referral No Information Social History Social History Additional Details Category Social Info Options Details Migrated Social History Migrated Social History Marital status: Problems Problem Type SNOMED Code ICD Code Onset Dates Problem Status W/U Status Risk Notes Problem Pure hyperglyceridemia (524592646) Pure hyperglyceridemia (272.1) 017 Active confirmed Problem Nonvenomous insect bite of multiple sites (353749861) Other, multiple, and unspecified sites, insect bite, nonvenomous, without mention of infection (919.4) 017 Active confirmed Problem Rupture of rotator cuff of shoulder (disorder) (642698602) Unspecified rotator cuff tear or rupture of unspecified shoulder, not specified as traumatic (M75.100) Active confirmed Problem Pre-procedure evaluation check (616859498) Encounter for other preprocedural examination (Z01.818) 022 Active confirmed Problem Cough (finding) (09459838) Cough, unspecified (R05.9) Active confirmed Problem Thyroid function tests abnormal (462827404) Abnormal results of thyroid function studies (R94.6) 019 Problem resolved confirmed Problem Localized swelli ng, mass and lump, neck (R22.1) Problem resolved confirmed Problem Arthralgia of the ankle and/or foot (791238380) Pain in right ankle and joints of right foot (M25.571) 017 Problem resolved confirmed Problem Cellulitis of right lower limb (26639544976278813) Cellulitis of right lower limb (L03.115) 017 Problem resolved confirmed Problem Acute pharyngitis (179442528) Acute pharyngitis, unspecified (J02.9) 019 Problem resolved confirmed Problem Thyroid function tests abnormal (846232951) Nonspecific abnormal results of thyroid function study (794.5) 019 Problem resolved confirmed Problem Malaise and fatigue (659959049) Other malaise and fatigue (780.79) Problem resolved confirmed Problem Arthralgia of the ankle and/or foot (760644472) Pain in joint, ankle and foot (719.47) Problem resolved confirmed Problem Cellulitis and abscess of lower leg (430629640) Cellulitis and abscess of leg, except foot (682.6) 017 Problem resolved confirmed Problem Acute sinusitis (26249162) Acute sinusitis, unspecified (461.9) 019 Problem resolved confirmed Problem Allergic rhinitis caused by pollen (disorder) (50311091) Allergic rhinitis due to pollen (477.0) 017 Problem resolved confirmed Problem COVID-19 (617732873) COVID-19 (U07.1) 022 Active confirmed Problem Impingement syndrome of shoulder region (995176410) Impingement syndrome of right shoulder (M75.41) Active confirmed Problem Pain of right shoulder region (finding) (9251142042) Pain in right shoulder (M25.511) Active confirmed Problem Bronchitis (38836830) Bronchitis, not specified as acute or chronic (J40) Active confirmed Problem Chronic sinusitis (76325731) Chronic sinusitis, unspecified (J32.9) Active confirmed Problem Pneumonia (372349858) Pneumonia, unspecified organism (J18.9) 024 Active confirmed Problem Acute sinusitis (84224390) Acute sinusitis, unspecified (J01.90) 023 Active confirmed Problem Mixed hyperlipidemia (477709452) Mixed hyperlipidemia (E78.2) 017 Active confirmed Problem Pure hyperglyceridemia (119839547) Pure hyperglyceridemia (E78.1) 017 Active confirmed Problem Localized superficial swelling of skin (429571685) Localized superficial swelling, mass, or lump (782.2) 019 Active confirmed Problem Acute upper respiratory infection (11872617) Acute upper respiratory infections of other multiple sites (465.8) 019 Active confirmed Problem Fatigue (05830217) Other fatigue (R53.83) 017 Problem resolved confirmed Vital Signs Heart Rate 86 /min 02/13/2024 Temperature 97.4 degrees Fahrenheit 02/13/2024 Respiratory Rate 16 /min 02/13/2024 Oximetry 97 % 02/13/2024 Blood pressure diastolic 84 mm Hg 02/13/2024 Blood pressure systolic 122 mm Hg 02/13/2024 Encounters Encounter Location Date Provider Diagnosis [address] [address] 02/13/2024 Dr. Edie Graham Bronchitis, not specified as acute or chronic J40 and Chronic sinusitis, unspecified J32.[address] [address] 02/29/2024 Provider Migration [address] [address] 03/01/2024 Provider Migration Assessments Encounter Date Diagnosis (ICD Code) Assessment Notes Treatment Notes Treatment Clinical Notes Section Notes 02/13/2024 Chronic sinusitis, unspecified (ICD-10 - J32.9) 02/13/2024 Bronchitis, not specified as acute or chronic (ICD-10 - J40) Plan Of Treatment No Information Insurance Providers Payer Name Payer Address Payer Phone Subscriber Number Group Number Insured Name Patient Relationship to Insured Coverage Start Date Coverage End Date [employer] [address] [place] [address] [id number] Belkis Deng Self - patient is the insured Medical (General) History Surgical History Surgery Date(Month/Year) Irrigation and Debridement ,notes : Parvez chung. Post-op infection 06/27/2021 shoulder colin ,notes : right rotator c uff repair 05/19/2021
--- OUTSIDE RECORDS SUMMARY | 2024-10-13 07:09 | XMS_ITS | Clinical Summary ---
Author Organization [facility] Address [address] [place] [address] Care Team Providers Care Child And Family Services Specialist Name Role Phone Unavailable Primary Care Provider Unavailabl e Source Comments [facility],non-owned Affiliates and Associated Physician Practices is amultiple site organization consisting of ambulatory clinics and hospital sitesin [place] and [place]. This disclosure is being madepursuant to the Care Everywhere program and may not contain all information available regarding this patient. Last updated 17.[facility] Social History Tobacco Use Types Packs/Day Years Used Date Smoking Tobacco: Never Assessed Comments Unknown Sex and Gender Information Value Date Recorded Sex Assigned at Not on file Legal Sex Female 1:00 PM CDT Gender Identity Not on file Sexual Orientation Not on file Plan of Treatment Health Maintenance Due Date Last Done Comments COLOGUARD (AGES 45-75) - COL ON CA SCREENING 1968 COLON MONITORING 1968 COLONOSCOPY - COLON CA SCREENING 1968 CT COLONOGRAPHY - COLON CA SCREENING 1968 Colorectal Cancer Screening 1968 FIT - COLON CA SCREENING 1968 FLEX SIG - COLON CA SCREENING 1968 LIPID TESTING 1968 MAMMOGRAM 1968 HIV SCREENING 01/29/1983 HEPATITIS C SCREENING 01/25/1986 DTAP/TDAP/TD VACCINES (1 - Tdap) 01/29/1987 HEPATITIS B VACCINE (1 of 3 - 19+ 3-dose series) 01/29/1987 PNEUMOCOCCAL VACCINE 50+ (1 of 1 - PCV) 01/29/2018 ZOSTER VACCINE (1 of 2) 01/29/2018 COVID-19 VACCINE (1 - 2023-2 5 season) 2023 DEPRESSION SCREENING 04/01/2024 INFLUENZA VACCINE (#1) 2024 HIB VACCINE Aged Out No longer eligi ble based on patient's age to complete this topic HPV VACCINE Aged Out No longer eligi ble based on patient's age to complete this topic MENINGOCOCCAL (Group B) VACC INE SHARED DECISION-MAKING Aged Out No longer eligibl e based on patient's age to complete this topic MENINGOCOCCAL GROUPS A/C/Y/W VACCINE Aged Out No longer eligible b ased on patient's age to complete this topic Insurance COMMERCIAL GENERIC * Guarantor: E-SCRE[employer]VON[employer] Account Type Relation to Patient Date of Phone Billing Address Company Employer [employer] [address]
--- OUTSIDE RECORDS SUMMARY | 2024-10-13 07:10 | XMS_ITS ---
Author Organization [facility] Address [address] [place] [address] Care Team Providers Care Flight Line Service Attendant Name Role Phone Dr. Yeyo Paz Primary Care Provider [phone] Migration, Provider Unavailable Unavailable REASON FOR VISIT [facility] Encounters Encounter Location Date Provider Diagnosis [facility] [address] [place] [address] 02/29/2024 Provider Migration Plan Of Treatment Medication Medication Name Sig Start Date Stop Date Notes Doxycycline Hyclate 100 MG Capsule 1 Oral two times a day; Duration: 10 02/13/2024 02/22/2024 Doxycycline Hyclate 100 MG Tablet 1 Oral two times a day; Duration: 05/18/2023 05/27/2023 Xanax 0.5 MG Tablet 1 Oral; Duration: 0 03/21/2021 021 Rx Refill Request,discontinu ereason:Refilled,P RN Reason:for anxiety ProAir RespiClick 108 (90 Base) MCG/ACT Aerosol Powder Breath Activated 2 Inhalation every 4-6 hours; Duration: 0 06/03/2023 06/03/2023 ,PRN Reason:for SOB Azithromycin 250 MG Tablet 1 Oral every day; Duration: 5 04/06/2023 04/10/2023 Progress Notes * Clara CHOI:1970 (54 yo F)Acc No.[id number]:02/29/2024 Patient: Belkis FARAH :1970 A ge:54 Y S ex:Female Phone: Address:[address] [place] [address], [id number] * Refills Stop Doxycycline Hyclate Tablet, 100 MG, Oral, 20, 1, two times a day, 10 Stop Doxycycline Hyclate Tablet, 100 MG, Oral, 20, 1, two times a day, 10 Stop Azithromycin Tablet, 250 MG, Oral, 6, 1, every day, 5 Stop ProAir RespiClick Aerosol Powder Breath Activated, 108 (90 Base) MCG/ACT, Inhalation, 8.5, 2, every 4-6 hours, 0 Stop Xanax Tablet, 0.5 MG, Oral, 2, 1, 0 Stop Doxycycline Hyclate Capsule, 100 MG, Oral, 20, 1, two times a day, 10 Subjective: * Chief Complaints: * E MR[facility] * * Date:
== END 2024-10-13 07:06 | disposition home or self-care (01) ==
LOC: ANHIMG 07:07
PROVIDERS: PCP Pediatrics; Visit Provider Obstetrics & Gynecology
DX: Z12.31 Encounter for screening mammogram for malignant neoplasm of breast (principal)
CPT/HCPCS: 77063; 77067